=== PATIENT | female | born 1995 | race Two or more races ===

== ENCOUNTER 2023-08-01 11:30 | Emergency (ER) | payer MEDICAID, OTHER ==
[~2023-08-01] VITALS: Ht 157.5 cm; Wt 59.9 kg
[2023-08-01 12:31] LABS: BASOPHILS # (AUTO) 0.2 K/UL (0.0-0.2); EOSINOPHILS # (AUTO) 0.1 K/uL (0.0-0.7); EOSINOPHILS % (AUTO) 1.7 % (0.0-7.0); HEMATOCRIT 38.2 % (31.2-41.9); HEMOGLOBIN 12.6 g/dL (10.9-14.3); LYMPHOCYTES # (AUTO) 1.7 K/uL (0.8-4.8); LYMPHOCYTES % (AUTO) 30.6 % (20.5-51.5); MEAN CORPUSCULAR HEMOGLOBIN 29.4 uug (24.7-32.8); MEAN CORPUSCULAR HGB CONC 33 g/dL (32.3-35.6); MEAN CORPUSCULAR VOLUME 88.6 fL (75.5-95.3); MONOCYTES # (AUTO) 0.4 K/uL (0.1-1.30); MONOCYTES % (AUTO) 7.3 % (0.0-11.0); NEUTROPHILS # (AUTO) 3.2 K/uL (1.8-8.9); NEUTROPHILS % (AUTO) 56.4 % (38.5-71.5); PLATELET COUNT (AUTO) 239 K/uL (179-408); RED BLOOD CELL COUNT(AUTO) 4.31 MIL/uL (3.63-4.92); RED CELL DISTRIBUTION WIDTH 12.7 % (12.3-17.7); WHITE BLOOD COUNT (AUTO) 5.6 K/uL (3.8-11.8)
[2023-08-01 12:45] LABS: ALBUMIN 3.7 g/dL (3.4-5.0); BILIRUBIN,DIRECT 0.1 mg/dL (0.0-0.2); BILIRUBIN,TOTAL 0.8 mg/dL (0.2-1.0); CALCIUM 8.7 mg/dL (8.5-10.1); CREATININE 0.9 mg/dL (0.6-1.3); POTASSIUM 3.9 mmol/L (3.5-5.1); TOTAL PROTEIN, SERUM 6.9 g/dL (6.4-8.2)
[2023-08-01 12:54] LABS: *BILIRUBIN,URIN NEGATIVE (NEGATIVE); *BLOOD, URINE 3+ (NEGATIVE); *KETONES,URINE 2+ (NEGATIVE); *UROBILINOGEN,URINE 0.2 E.U./dl (NORMAL); LEUKOCYTE ESTERASE ,URINE NEGATIVE (NEGATIVE); NITRITE, URINE NEGATIVE (NEGATIVE); UGLUCOSE NEGATIVE (NEGATIVE)
[2023-08-01 12:56] LABS: *CLARITY,URINE CLOUDY (CLEAR); *COLOR,URINE RED (YELLOW); *PROTEIN,URINE 3+ (NEGATIVE)
[2023-08-01 13:02] LABS: RBC,URINE TNTC /HPF (0-3); WBC,URINE NONE SEEN /HPF (0-3)
[2023-08-01] MEDS ORDERED: IBUP-1955 PO (13:56)
[2023-08-01] MEDS ORDERED: IBUPROFEN 600 MG TABLET ONE (13:59)
[2023-08-01] MEDS: IBUPROFEN 600 MG TABLET PO ONE (14:01)
[2023-08-01 14:18] VITALS: BP 124/71; TEMP 98.2; O2SAT 98
== END 2023-08-01 14:19 | disposition home or self-care (01) ==
LOC: ER 11:30
DX: N93.9 Abnormal uterine and vaginal bleeding, unspecified (principal); D25.9 Leiomyoma of uterus, unspecified; R10.2 Pelvic and perineal pain; Z88.0 Allergy status to penicillin
CPT/HCPCS: 36415; 76856; 85025; A4606; A4663